=== PATIENT | female | born 2000 | race Caucasian/White ===

== ENCOUNTER 2023-09-27 13:06 | Day surgery (SDC) | payer OTHER, SELFPAY ==
[2023-09-27] VITALS (19 sets, daily range): BP systolic 98–140; BP diastolic 65–89; PULSE 77–107; RESP 12–20; TEMP 35.8–36.7; O2SAT 93–99; BMI 42.8
--- NOTE | 2023-09-27 14:32 | CRLHL7_ITS ---
For Patients: As a result of the Century Cures Act, medical imaging exams and procedure reports are released immediately into your electronic medical record. You may view this report before your referring provider. If you have questions, please contact your health care provider. INDICATION: LLQ PAIN TECHNIQUE: Ultrasound pelvis transabdominal and transvaginal for better assessment or to better visualize the endometrium. Real-time sonographic images with spectral and color Doppler imaging of the ovaries were obtained. COMPARISON: Pelvic ultrasound report from 08/13/2019 FINDINGS: Uterus: 8.7 x 3.7 x 4.4 cm. Normal echotexture of the myometrium. No masses. Endometrium: Transvaginal imaging was performed to better evaluate the endometrium. Endometrial thickness measures 11 mm. No sign of endometrial mass or fluid. The right ovary is not visualized. There is a large simple appearing cystic lesion seen superior to the uterus that measures approximately 15.8 x 11.1 x 16.4 centimeters. The left ovary is not discretely visualized. There is minimal blood flow seen on color Doppler adjacent to the cystic lesion. Cul-de-sac: No significant free fluid. IMPRESSION: 1. Large simple appearing cystic lesion seen superior to the uterus and slightly to the left of midline measuring 15.8 x 1.1 x 16.4 centimeters. 2. The left ovary is not discretely visualized; however, the large aforementioned cystic lesion may predispose the ovary to torsion. There is minimal blood flow seen on color Doppler adjacent to the cystic lesion without arterial waveforms on spectral Doppler. It is unclear if this is blood flow to an adjacent, compressed left ovary. Can consider consultation with gynecology for further management recommendations. 3. The right ovary is not visualized. Dictated by Juan F Byrd MD @ 09/27/2023 5:17:32 PM (Electronically Signed)
[2023-09-27] MEDS: KETOROLAC 15 MG/ML inj IVP (15:05)
[2023-09-27] MEDS: MORPHINE 4 MG/ML INJ IVP (15:05)
[2023-09-27] MEDS: ONDANSETRON 2 MG/ML inj 4 MG IVP (15:06)
[2023-09-27 15:08] LABS: Basophils Percent Auto 0.2 % (0.0-3.0); Eosinophils Percent Auto 0.2 % (0.0-7.0); Hematocrit 40.3 % (33.0-51.0); Hemoglobin* 13.1 gm/dL (12.0-16.0); Immature Granulocytes Pct Auto 1.1 %; Lymphocytes Percent Auto 10.8 % (20-44); Mean Corpuscular HGB Conc 33 gm/dL (32-36); Mean Corpuscular Hemoglobin 28 pg (26-34); Mean Corpuscular Volume 86 fL (80-100); Monocytes Percent Auto 2.8 % (0.0-11.0); Neutrophils Percent Auto 84.9 % (42.0-72.0); Platelet Count* 394 K/uL (140-440); RDW Coefficient of Variation % 13.8 % (11.5-15.5); Red Blood Count 4.67 m/uL (4.00-5.20); White Blood Count* 12.93 K/uL (4.50-11.00)
[2023-09-27 15:09] LABS: Slide Review Reflex No
[2023-09-27 15:27] LABS: Albumin* 4.8 g/dL (3.3-5.0); Chloride* 107 mmol/L (96-114)
[2023-09-27 15:28] LABS: Potassium* 3.9 mmol/L (3.6-5.1); Sodium* 139 mmol/L (135-149)
[2023-09-27 15:30] LABS: Anion Gap 13 mEq/L (7-15); Aspartate Amino Transferase* 21 U/L (12-35); Bilirubin Total* 0.6 mg/dL (0.1-1.5); Carbon Dioxide* 19 mmol/L (20-32); Creatinine* 0.6 mg/dL (0.5-1.5); Estimated Glomerular Filt Rate 129 ml/min
[2023-09-27 15:31] LABS: Alanine Aminotransferase* 19 U/L (4-35); Alkaline Phosphatase* 145 U/L (40-150); Blood Urea Nitrogen* 9 mg/dL (5-24); Calcium* 9.5 mg/dL (8.4-10.6); Glucose* 125 mg/dL (60-115); Lipase* 70 U/L (23-300); Total Protein* 8.3 g/dL (6.0-8.3)
[2023-09-27 15:34] LABS: PCR FLU A Negative PCR FLU A (Negative); PCR FLU B Negative PCR FLU B (Negative); PCR RSV Negative PCR RSV (Negative)
--- NOTE | 2023-09-27 15:37 | ED.GENADULT ---
HPI - General Adult General Date Seen: 09/27/23 Chief complaint: Nausea/Vomiting Stated complaint: Vomiting, stomach pain Time Seen by Provider: 09/27/23 14:22 Source: patient Mode of arrival: ambulatory Limitations: no limitations History of Present Illness HPI narrative: Patient is a 23-year-old female with no pertinent medical problems presenting to the emergency department for left lower quadrant/left pelvic pain. Pain started suddenly at 10:30 and has been gradually getting worse. She has says the pain is severe in nature and describes as an eye of 10 sharp pain. Denies ever having symptoms like this. No previous abdominal surgeries. Denies dysuria, vaginal bleeding, vaginal discharge, fevers, chills, chest pain, shortness of breath. She is very nauseated and has vomited several times due to the pain. She tried taking Tylenol for pain without any improvement in her symptoms. It is not aware of any sick contacts. Related Data Home Medications Medication Instructions Recorded Confirmed fluoxetine 40 mg capsule 40 mg PO QAM 09/27/23 09/27/23 thyroid (pork) 60 mg tablet (EDGER LINER 60 mg PO DAILY 09/27/23 09/27/23 Thyroid) Allergies Allergy/AdvReac Type Severity Reaction Status Date / Time No Known Drug Allergies Allergy Verified 09/27/23 13:19 Review of Systems Status of ROS: Reports: 10 or more systems reviewed and unremarkable except as noted in History and below [facility] Social History Smoking Status: Never smoker Do you use any of these nicotine containing products: None How often do you have a drink containing alcohol: never How often do you have six or more drinks on one occasion: Never AUDIT-C Alcohol total score: 0 Non-prescribed substance use: denies use service: No Exam Narrative: Exam Narrative: Const: Well-nourished, Well-developed, in moderate distress Eyes: PERRL, no conjunctival injection, and symmetrical lids HENT: Atraumatic external nose and ears. Moist mucous membranes. Neck: Symmetric, trachea midline, No thyromegaly. CVS: RRR, No murmurs or gallops. Peripheral pulses 2+ and equal in all extremities RESP: Unlabored respiratory effort. Clear to auscultation bilaterally. GI: Left lower quadrant tenderness with tenderness in her left pelvic region too, Nondistended, No rebound or guarding. MSK:Extremities w/o deformity, Normal Active ROM Skin: Warm, Dry. No rashes or lesions. Neuro: Normal Muscle tone, No focal neurological deficits. Psych: Awake, Alert, & Oriented x3. Appropriate mood and affect. Const: Vital Signs, click to edit/add: Vital Signs - 24 hr 09/27/23 13:15 09/27/23 14:26 09/27/23 14:32 Temperature 96.4 F L Pulse Rate 80 Pulse Rate [Pulse Oximeter] 77 Respiratory Rate 18 Blood Pressure 124/77 Blood Pressure [Ri ght Upper Arm] 114/76 Pulse Oximetry 98 99 Oxygen Delivery Me thod Room Air 09/27/23 16:26 09/27/23 16:37 09/27/23 17:02 Temperature Pulse Rate Pulse Rate [Pulse Oximeter] Respiratory Rate Blood Pressure 98/66 115/66 111/70 Blood Pressure [Ri ght Upper Arm] Pulse Oximetry Oxygen Delivery Me thod 09/27/23 17:31 09/27/23 18:02 09/27/23 18:19 Temperature 98.0 F Pulse Rate 100 Pulse Rate [Pulse Oximeter] Respiratory Rate 20 Blood Pressure 111/73 111/69 Blood Pressure [Ri ght Upper Arm] Pulse Oximetry 97 Oxygen Delivery Me thod 09/27/23 18:32 09/27/23 19:01 Temperature Pulse Rate Pulse Rate [Pulse Oximeter] Respiratory Rate Blood Pressure 115/75 100/65 Blood Pressure [Ri ght Upper Arm] Pulse Oximetry Oxygen Delivery Me thod Course Vital Signs Vital signs: Initial Vital Signs Temperature 96.4 F L 09/27/23 13:15 Temperature Source Temporal Artery Scan 09/27/23 13:15 Pulse Rate 77 09/27/23 13:15 Pulse Rhythm Regular 09/27/23 13:15 Pulse Strength 3+ Normal 09/27/23 13:15 Respiratory Rate 18 09/27/23 13:15 Blood Pressure 114/76 09/27/23 13:15 Blood Pressure Mean 88 09/27/23 13:15 Blood Pressure Position Sitting 09/27/23 13:15 Pulse Oximetry 98 09/27/23 13:15 Oxygen Delivery Method Room Air 09/27/23 13:15 Vital Signs Temperature 96.4 F L 09/27/23 13:15 Pulse Rate 77 09/27/23 13:15 Respiratory Rate 18 09/27/23 13:15 Blood Pressure 114/76 09/27/23 13:15 Pulse Oximetry 98 09/27/23 13:15 Oxygen Delivery Method Room Air 09/27/23 13:15 Temperature 98.0 F 09/27/23 18:19 Pulse Rate 100 09/27/23 18:19 Respiratory Rate 20 09/27/23 18:19 Blood Pressure 100/65 09/27/23 19:01 Pulse Oximetry 97 09/27/23 18:19 Oxygen Delivery Method Room Air 09/27/23 13:15 Medications Administered Medications: Discontinued Medications Generic Name Dose Route Start Last Admin Trade Name Freq PRN Reason Stop Dose Admin Hydromorphone HCl 0.5 mg 09/27/23 16:18 09/27/23 16:20 Hydromorphone 0.5 Mg/0.5 Ml Inj IVP 09/27/23 16:19 0.5 mg ONCE ONE Administration Hydromorphone HCl 0.5 mg 09/27/23 17:41 09/27/23 17:57 Hydromorphone 0.5 Mg/0.5 Ml Inj IVP 09/27/23 17:42 0.5 mg ONCE ONE Administration Hydromorphone HCl 0.5 mg 09/27/23 19:01 09/27/23 19:13 Hydromorphone 0.5 Mg/0.5 Ml Inj IVP 09/27/23 19:02 0.5 mg ONCE ONE Administration Ketorolac Tromethamine 15 mg 09/27/23 15:03 09/27/23 15:05 Ketorolac 15 Mg/Ml Inj IVP 09/27/23 15:04 15 mg ONCE ONE Administration Morphine Sulfate 4 mg 09/27/23 14:32 09/27/23 15:05 Morphine 4 Mg/Ml Inj IVP 09/27/23 14:33 4 mg ONCE ONE Administration Ondansetron HCl 4 mg 09/27/23 14:32 09/27/23 15:06 Ondansetron 2 Mg/Ml Inj IVP 09/27/23 14:33 4 mg ONCE ONE Administration Medical Decision Making MDM Narrative Medical decision making narrative: Patient is a 23-year-old female presenting for left lower quadrant/pelvic pain. Concerned about the pain she appear to be, also then the pain came on, and location I am very concerned for torsion at this time. Patient given Toradol, morphine for pain and Zofran for nausea. CMP, lipase, cholecystitis flu/RSV, CBC all ordered. dairy manufacturing technologist tried to take care for ultrasound immediately but patient was in too much pain unable to tolerate the ultrasound. After patient was given pain medications she was able tolerate ultrasound. White blood cell count came back at 12.93. She is vomiting this could be a stress reaction. CMP shows no concerning findings. COVID says flu/RSV is negative. test is negative. dairy manufacturing technologist states the ultrasound appeared to show a very large ovarian cyst with concern for torsion. I immediately called OB. They came down to evaluate the patient. Is decided patient will go to surgery. Ultrasound read came back after this and said what we or a suspected. Patient has been can given Dilaudid for pain. She will go to OR from the ED Lab Data Labs: Lab Results 09/27/23 09/27/23 09/27/23 Range/Units 14:12 15:00 16:22 WBC 12.93 H (4.50-11.00) K/uL RBC 4.67 (4.00-5.20) m/uL Hgb 13.1 (12.0-16.0) gm/dL Hct 40.3 (33.0-51.0) % MCV 86 (80-100) fL MCH 28 (26-34) pg MCHC 33 (32-36) gm/dL RDW Coeff of Marce 13.8 (11.5-15.5) % Plt Count 394 (140-440) K/uL Neut % (Auto) 84.9 H (42.0-72.0) % Lymph % (Auto) 10.8 L (20-44) % Gosper % (Auto) 2.8 (0.0-11.0) % Eos % (Auto) 0.2 (0.0-7.0) % Baso % (Auto) 0.2 (0.0-3.0) % Neut # (Auto) 11.00 H (1.7-7.0) K/uL Lymph # (Auto) 1.40 (0.90-2.90) K/uL Gosper # (Auto) 0.40 (0.00-0.90) K/UL Eos # (Auto) 0.00 (0.00-0.50) K/uL Baso # (Auto) 0.00 (0.00-0.30) K/uL Abs Immat Gran (auto) 0.10 (0.00-0.30) K/uL Imm/Tot Granulo (auto) 1.1 % Sodium 139 (135-149) mmol/L Potassium 3.9 (3.6-5.1) mmol/L Chloride 107 (96-114) mmol/L Carbon Dioxide 19 L (20-32) mmol/L Anion Gap 13 (7-15) mEq/L BUN 9 (5-24) mg/dL Creatinine 0.6 (0.5-1.5) mg/dL Estimated Creat Clear 152.40 Estimated GFR 129 ml/min Glucose 125 H (60-115) mg/dL Calcium 9.5 (8.4-10.6) mg/dL Total Bilirubin 0.6 (0.1-1.5) mg/dL AST 21 (12-35) U/L ALT 19 (4-35) U/L Alkaline Phosphatase 145 (40-150) U/L Total Protein 8.3 (6.0-8.3) g/dL Albumin 4.8 (3.3-5.0) g/dL Lipase 70 (23-300) U/L HCG, Qual (Negative) SARS-CoV-2 (PCR) Negative SARS-CoV-2 (Negative) Influenza Type A (PCR) Negative PCR FLU A (Negative) Influenza Type B (PCR) Negative PCR FLU B (Negative) RSV (PCR) Negative PCR RSV (Negative) Lab Acknowledgement Test Added 09/27/23 Range/Units 16:30 WBC (4.50-11.00) K/uL RBC (4.00-5.20) m/uL Hgb (12.0-16.0) gm/dL Hct (33.0-51.0) % MCV (80-100) fL MCH (26-34) pg MCHC (32-36) gm/dL RDW Coeff of Marce (11.5-15.5) % Plt Count (140-440) K/uL Neut % (Auto) (42.0-72.0) % Lymph % (Auto) (20-44) % Gosper % (Auto) (0.0-11.0) % Eos % (Auto) (0.0-7.0) % Baso % (Auto) (0.0-3.0) % Neut # (Auto) (1.7-7.0) K/uL Lymph # (Auto) (0.90-2.90) K/uL Gosper # (Auto) (0.00-0.90) K/UL Eos # (Auto) (0.00-0.50) K/uL Baso # (Auto) (0.00-0.30) K/uL Abs Immat Gran (auto) (0.00-0.30) K/uL Imm/Tot Granulo (auto) % Sodium (135-149) mmol/L Potassium (3.6-5.1) mmol/L Chloride (96-114) mmol/L Carbon Dioxide (20-32) mmol/L Anion Gap (7-15) mEq/L BUN (5-24) mg/dL Creatinine (0.5-1.5) mg/dL Estimated Creat Clear Estimated GFR ml/min Glucose (60-115) mg/dL Calcium (8.4-10.6) mg/dL Total Bilirubin (0.1-1.5) mg/dL AST (12-35) U/L ALT (4-35) U/L Alkaline Phosphatase (40-150) U/L Total Protein (6.0-8.3) g/dL Albumin (3.3-5.0) g/dL Lipase (23-300) U/L HCG, Qual Negative (Negative) SARS-CoV-2 (PCR) (Negative) Influenza Type A (PCR) (Negative) Influenza Type B (PCR) (Negative) RSV (PCR) (Negative) Lab Acknowledgement Imaging Data Pelvic ultrasound: Radiologist's impression: 1. Large simple appearing cystic lesion seen superior to the uterus and slightly to the left of midline measuring 15.8 x 1.1 x 16.4 centimeters. 2. The left ovary is not discretely visualized; however, the large aforementioned cystic lesion may predispose the ovary to torsion. There is minimal blood flow seen on color Doppler adjacent to the cystic lesion without arterial waveforms on spectral Doppler. It is unclear if this is blood flow to an adjacent, compressed left ovary. Can consider consultation with gynecology for further management recommendations. 3. The right ovary is not visualized. Dictated by Juan F Byrd MD @ 09/27/2023 5:17:32 PM Discharge Plan Discharge Clinical Impression: Ovarian cyst Qualifiers: Laterality: left Qualified Code(s): N83.202 - Unspecified ovarian cyst, left side Patient Disposition: XFER to OR Condition: Stable Follow Up/Referrals: Dari Phan, AUDIO VISUAL AIDE, BOTTLE LINE WORKER [Primary Care Provider] -
[2023-09-27 15:44] LABS: SARS PCR* Negative SARS-CoV-2 (Negative)
[2023-09-27] MEDS: HYDROmorphone 0.5 mg/0.5 ml inj IVP ×3 (16:20→19:13)
[2023-09-27 17:05] LABS: HCG Qualitative Serum* Negative (Negative)
--- NOTE | 2023-09-27 18:58 | P.OBPRC_ITS ---
Procedure Date of procedure: 09/27/23 Pre-op diagnosis: 1. 35 0/7 weeks' gestation 2. Vaginal bleeding; suspected placental abruption Post-op diagnosis: same Procedure Done: Global Will [facility] bill your pro fee for this procedure?: Yes Blood Loss Measurement Type: QBL (1028 cc) Bakri Used: No IV fluids (mL): 1,900 Surgeon: Emilie Morales MD Anesthesia Type: TAP Block Findings: 1. Male infant, cephalic OA presentation, Apgars of 7 and 8, weight pending at time of this dictation 2. Normal appearance of uterus, bilateral tubes and ovaries Procedure Name: Primary low-transverse section Procedure Description: PROCEDURE IN DETAIL: Patient was taken to the operating room with IV running. She received cefazolin in preoperative prophylaxis. Spinal anesthesia was administered. Martinez catheter was inserted. She was prepped and draped in the usual sterile fashion. Anesthesia was tested and found to be adequate. A low-transverse skin incision was made with a scalpel and carried through to the underlying layer of fascia with the scalpel. The subcutaneous fat was dissected off the underlying fascia with Bovie. The fascia was nicked in the midline with a scalpel, and this incision was extended laterally with scissors. The rectus muscles were in the midline. Peritoneum was identified and entered bluntly. Bovie was used to widen this opening laterally. Koko O retractor was inserted and tightened down, providing excellent visualization of the lower uterine segment. The bladder reflection was found to be well below the planned site for hysterotomy. Low-transverse uterine incision was made with a scalpel. Incision was widened bluntly. The 's head was grasped through the hysterotomy and delivered with the help of fundal pressure. The remainder of the body delivered without incident. Cord was clamped and cut after 30 seconds. was handed off to attending nurses. The placenta was delivered with gentle traction on the cord. The uterus was cleaned of all clots and debris with the dry lap pad. The uterus was exteriorized. The hysterotomy was reapproximated with 0 Vicryl in a running, locked fashion. Second layer of the same suture was used in imbricating fashion to obtain hemostasis. One additional [id number] suture were required near the left aspect of the hysterotomy to obtain hemostasis. The adnexa were examined and noted to be normal in appearance. The cul-de-sac and gutters were cleansed with dampened laparotomy sponge, removing any further clots and debris. The uterus was returned to the abdomen. There was some oozing along the parietal peritoneum adjacent to the bladder, which was addressed with Bovie. The Koko O retractor was removed. The hysterotomy was reexamined and found to be hemostatic. The peritoneum was reapproximated with 2 0 Vicryl in a running fashion. The rectus muscles were examined and found to be hemostatic. The fascia was reapproximated with 0 Vicryl in a running fashion. Subcutaneous fat was irrigated and Bovie used on oozing vessels. The subcutaneous fat was reapproximated with 2 0 plain gut suture in an interrupted fashion. [] The skin was closed with a subcuticular stitch of 4-0 Monocryl. Surgical glue was applied above this. Patient tolerated procedure well was taken to recovery area in stable condition. Complications: Intrapartum hemorrhage of 1028 mL, which ceased after hysterotomy closure. Pathology: specimen obtained, sent to pathology (Placental) Surgery Debrief Performed: Yes Condition: stable Disposition: floor
[2023-09-27] MEDS: LACTATED RINGERS 1000 ML 1,000 ML 125 ML IV (19:00)
[2023-09-27] MEDS: LACTATED RINGERS 1000 ML 1,000 ML 100 ML IV (19:45)
--- NOTE | 2023-09-27 19:48 | PM.GYNCN1 ---
LAPEL STITCHER - CN: HPI Data of Consult Date Seen: 09/27/23 Patient: Other Consult date: 09/27/23 Primary Care Provider: Dari Phan APRN, LIZZY Consult Narrative Reason for consult: abdominal pain Narrative: Anamika Goldberg is a 23 year old female who is seen by kind request of Dr. Eduardo Treviño for evaluation of abdominal pain in the setting of large ovarian cyst and suspected torsion. Anamika reports having experienced intermittent pelvic pain over the last month or so. Upon awakening this morning, she experienced severe and persistent pelvic pain. She has been vomiting since 07/25, related to the pain. She has no history of ovarian cysts. She has been seen in the ER previously for abdominal pain, and was found to have constipation. Obstetric and gynecologic history: G0 She reports somewhat regular menses, occurring roughly every month, with length of flow around 6 days. They are occasionally heavy and painful. She has no history of sexually transmitted infection She has never had a Pap smear Past medical history: Hypothyroidism, treated with thyroid replacement Generalized anxiety disorder, treated with fluoxetine Past surgical history: None Family history: Maternal aunt with a rare type of cervical cancer Social history: She lives in [place] with her parents. She is accompanied by her mother. 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 She does not smoke or use recreational drugs. She infrequently drinks alcohol. cc:: CC: [facility] Social History Smoking Status: Never smoker Do you use any of these nicotine containing products: None How often do you have a drink containing alcohol: never How often do you have six or more drinks on one occasion: Never AUDIT-C Alcohol total score: 0 Non-prescribed substance use: denies use service: No Meds Home Medications and Allergies Home Medications Medication Instructions Recorded Confirmed Type fluoxetine 40 mg capsule 40 mg PO QAM 09/27/23 09/27/23 History thyroid (pork) 60 mg tablet (ROLLING MACHINE TENDER 60 mg PO DAILY 09/27/23 09/27/23 History Thyroid) Allergies Allergy/AdvReac Type Severity Reaction Status Date / Time No Known Drug Allergies Allergy Verified 09/27/23 13:19 LAPEL STITCHER - Exam Physical Exam: Vital signs: Temp Pulse Resp BP Pulse Ox O2 Del Method 98.0 F 100 20 100/65 97 Room Air 09/27/23 18:19 09/27/23 18:19 09/27/23 18:19 09/27/23 19:01 09/27/23 18:19 09/27/23 13:15 Narrative: Physical exam: General: Appears uncomfortable and slightly sleepy Psych: Alert and oriented x3, full affect HEENT: Normocephalic, atraumatic Heart: Regular rate and rhythm, no murmur rub or gallop Lungs: Clear to auscultation bilaterally Abdomen: Soft, vague suggestion of mobile mass in lower abdomen, mild tenderness at this time, though I examine her after receiving narcotics, no rebound, or guarding, palpable mass, no hepatosplenomegaly, no hernias Lower extremities: No edema or erythema LAPEL STITCHER - Results Labs Labs: Short CBC 09/27/23 Range/Units 15:00 WBC 12.93 H (4.50-11.00) K/uL Hgb 13.1 (12.0-16.0) gm/dL Hct 40.3 (33.0-51.0) % Plt Count 394 (140-440) K/uL BMP 09/27/23 15:00 Sodium 139 Potassium 3.9 Chloride 107 Carbon Dioxide 19 L BUN 9 Creatinine 0.6 Glucose 125 H Calcium 9.5 Liver Function 09/27/23 Range/Units 15:00 Total Bilirubin 0.6 (0.1-1.5) mg/dL AST 21 (12-35) U/L ALT 19 (4-35) U/L Alkaline Phosphatase 145 (40-150) U/L Albumin 4.8 (3.3-5.0) g/dL Imaging US - abdomen: Attestation: I have reviewed the pertinent imaging results. My impression: Large simple cyst adjacent to the uterus, measuring greater than 16 cm in images provided Radiologist's impression: IMPRESSION: 1. Large simple appearing cystic lesion seen superior to the uterus and slightly to the left of midline measuring 15.8 x 1.1 x 16.4 centimeters. 2. The left ovary is not discretely visualized; however, the large aforementioned cystic lesion may predispose the ovary to torsion. There is minimal blood flow seen on color Doppler adjacent to the cystic lesion without arterial waveforms on spectral Doppler. It is unclear if this is blood flow to an adjacent, compressed left ovary. Can consider consultation with gynecology for further management recommendations. 3. The right ovary is not visualized. Assessment and Plan Assessment and plan (1) Ovarian cyst: Status: Acute (2) Ovarian torsion: Status: Acute Assessment and Plan: At least intermittent torsion is suspected on imaging, and her history of pain and vomiting is consistent with this diagnosis. Given this, the priority is for removal of the ovarian cyst. Given the size of the cyst, I suspect that I may need to remove the entire ovary, as there would be little healthy cortex left. I do not suspect malignancy given the appearance of the cyst and the patient's age. I will attempt laparoscopic removal of sister oophorectomy. We discussed possibility of having to change to laparotomy. We discussed the significance of cyst rupture. We also discussed impact on fertility. Her remaining ovary should be enough to maintain ovulation and reproductive capacity. We discussed risks of surgery, including bleeding/hemorrhage, risk of transfusion, infection, damage to internal organs, risks of anesthesia, risk of thromboembolism. We discussed likely postoperative restrictions and precautions in the setting of both successful laparoscopy and in the setting of conversion to laparotomy. Consent form was reviewed with and signed by patient. She will need no preoperative antibiotics.
[2023-09-27] MEDS: BUPIVACAINE 0.25% 30 ML INJECTION (21:17)
--- NOTE | 2023-09-27 21:24 | SUR.OPER ---
PATIENT QUESTIONS ANSWERED SATISFACTORILY PREOPERATIVELY. PATIENT BROUGHT TO OR #4 PER WHEELCHAIR. Patient positioned supine on OR #4 bed for the intubation. Pt. then moved into the lithotomy position for the procedure. Perioperative team/Areli padded and tucked the arms at pt. side w/ sleds in a neutral position. Final approval of positioning by surgeon.
[2023-09-27] MEDS: SILVER NITRATE APPLICATOR 1 EACH STICK..EA. TOPICAL (23:02)
--- NOTE | 2023-09-27 23:20 | P.ANES_ITS ---
Anesthesia Charges Start Date/Time Anesthesia Start Date: 09/27/23 Anesthesia Start Time: 20:31 Stop Date/Time Anesthesia Stop Date: 09/27/23 Anesthesia Stop Time: 23:19 Summary Emergency: WAGE ADJUSTER
--- NOTE | 2023-09-27 23:29 | W.PM.GYNPROC ---
Procedure Note Date of procedure: 09/27/23 Pre-op diagnosis: Left ovarian cyst with suspected torsion Post-op diagnosis: other (1. Left tubal cyst with torsion involving left tube and ovary; 2. Left ovarian cyst; 3. Endometriosis) Procedure: Laparoscopy with left salpingectomy, left ovarian cystectomy, fulguration and excision of endometriosis Anesthesia: GETA Complications: None Surgeon: Emilie Morales MD Maintenance Planning Clerk: Gina Richardson Estimated blood loss (mL): 25 IV fluids (mL): 1,000 Urine Output (mL): 75 Pathology: specimen obtained, sent to pathology (1. Proximal left Fallopian tube; 2. Left ovarian cyst wall; 3. Biopsy of right uterosacral ligament; 4. Left tubal cyst) Condition: stable Disposition: floor Findings: 1. Upon pelvic exam under anesthesia, the cervix and vagina were normal in appearance. Bimanual exam was limited by patient habitus. 2. Upon laparoscopy, survey of the upper abdomen revealed a normal appearance to the inferior edge of the liver, gallbladder and stomach. Bowels were grossly normal appearance. Appendix was not visualized. Survey of the pelvis revealed a very large cystic mass involving the distal left Fallopian tube. The left fallopian tube was twisted twice around the left utero-ovarian ligament, with the cystic mass distal to the site of torsion. The left ovary exhibited a small blood-filled cyst along its medial most edge, proximally 1.5 cm in greatest dimension. The uterus was normal appearance. The bladder reflection was normal in appearance. The posterior cul-de-sac and bilateral uterosacral ligaments exhibited scattered powder burn lesions. There was a small inverted pocket of peritoneal covering over the proximal right uterosacral ligament. The right tube and ovary were entirely normal appearance. Bilateral ovarian fossa were normal in appearance. Procedure Description: Patient was taken to the operating room with IV running. She was positioned in dorsal lithotomy position with her legs fully supported in Yellofin stirrups. General anesthesia was administered. She was prepped and draped in the usual sterile fashion. Bimanual exam was performed for the above-noted findings. Speculum was inserted. A single-toothed uterine manipulator was inserted through the cervix into the lower uterine segment, and affixed to the anterior cervical lip. Speculum was removed. Martinez catheter was placed. Patient's legs were placed in neutral position. Attention was turned to patient's abdomen. The infraumbilical area was infiltrated with small amount of Marcaine. An infraumbilical incision was made with a scalpel and carried through to the underlying layer of fascia with a hemostat. The fascia was grasped with Ubaldo clamps and the fascia was incised with Young scissors. The peritoneum beneath this was entered bluntly. A 12 mm Wray trocar was passed through the anterior abdominal wall into the peritoneal cavity. The balloon tip was inflated. Insufflator was attached and pneumoperitoneum was achieved. The tip of the port did need to be advanced a small bit to be in the proper location. Survey of abdomen and pelvis revealed the above-noted findings. Two additional port sites were created. The first was in the patient's left lower quadrant, just superior medial to the left ASIS. The second was a hand's breath superior to and slightly medial to the first. Each was infiltrated with small amount of Marcaine prior to incision. A 5 mm incision was made at each site, making sure the large vessels were out of harm's way. A 5 mm Fios Kii port was inserted at each site, under direct visualization and without complication. The balloon on each of the two ports was inflated, holding each in place. The large cyst involving the distal left fallopian tube was lifted out of the pelvis and held away from the adjacent normal appearing left ovary. Using the Thunderbeat device, this cyst was divided from the neighboring ovary. The tissue between these 2 structures was quite dense and thick. Once this cyst was divided and freed from the ovary, it was placed intact in the upper abdomen. The remaining fallopian tube and ovary were then on twisted. The remaining fallopian tube was dissected out of the mesosalpinx with the Thunderbeat device, moving laterally to medially, and the left tube was amputated at the cornua. It was sent to pathology for further analysis. Hemostasis was noted. The left ovary was elevated away from the pelvic sidewall. It appeared healthy and well vascularized after the torsion was resolved. The small, blood-filled cyst described above was entered with the Thunderbeat device, and was found to be full of clotted dark blood. Portions of the overlying cortex and cyst wall were sent to pathology for further analysis. Hemostasis was noted. Using the uterine manipulator to antevert the uterus, the cul-de-sac and uterosacral ligaments were better visualized. The pouch arising from the proximal right uterosacral ligament was grasped with Madison forceps laparoscopically and the peritoneal covering was excised with monopolar cautery and sent to pathology for further analysis. The remaining powder burn lesions in the cul-de-sac and involving the uterosacral ligaments were fairly superficial. These were cauterized with monopolar cautery. Hemostasis was noted. The Jesus port was removed from the umbilical port site. The fascial incision was lengthened, initially long enough to accommodate the extra large Endo-Catch bag; I believe the diameter was 15 mm. The patient was placed in a more neutral position, and the cyst was moved towards the pelvis. The trocar of the large Endo-Catch bag was inserted directly through the umbilical incision. The bag was deployed under direct visualization. The bag was then moved cephalic to caudad around the cystic tubal mass, which entirely filled the bag. The bag was cinched down and the edge was brought to the abdominal wall. To accomplish this, the fascial incision was length plan slightly to around 3.5 cm. However, the mass was too big to allow the bag's edges to be pulled entirely through the anterior abdominal wall. The edges of the bag were grasped the several hemostats and held at the skin edge, as high as they would go. From within the bag, the cystic mass was punctured and suction eligibility counselor was used to suction the clear fluid that began to leave the mass. In total, the mass contained about 1 L of fluid. Once the cyst had collapsed enough to allow delivery of the cyst through the anterior abdominal wall, this was removed in the bag and sent to pathology for further analysis. With the umbilical port held closed digitally, pneumoperitoneum was again achieved and survey of the pelvis revealed hemostasis. The balloons on the 2 remaining ports were deflated, and these ports were removed. The fascia of the umbilical port site was grasped with several Ubaldo clamps and was closed with a running stitch of 0 Vicryl. The skin of this site and the 2 other 5 mm port sites was closed with a subcuticular stitch of 4-0 Monocryl. Surgical glue was applied above this. Patient's legs were placed back in lithotomy position. The single-toothed uterine manipulator was removed. There was bleeding noted from the puncture site on the anterior lip the cervix, which was addressed with silver nitrate stick. The Martinez catheter was removed. Patient tolerated procedure well was taken to recovery area in stable condition.
[2023-09-28 00:12] VITALS: BP 127/73; PULSE 82; RESP 16; TEMP 36.7; O2SAT 91
[2023-09-28 00:27] VITALS: BP 108/65; PULSE 83; RESP 16; TEMP 36.8; O2SAT 94
[2023-09-28 00:42] VITALS: BP 114/75; PULSE 95; RESP 16; O2SAT 92
[2023-09-28 00:57] VITALS: BP 113/71; PULSE 98; RESP 16; TEMP 36.4; O2SAT 96
[2023-09-28 01:27] VITALS: BP 108/74; PULSE 97; RESP 16; TEMP 36.6; O2SAT 94
[2023-09-28 01:57] VITALS: BP 107/71; PULSE 94; RESP 18; TEMP 36.6; O2SAT 96
[2023-09-28] MEDS: OXYCODONE 5 MG TABLET PO (02:39)
--- NOTE | 2023-09-28 02:43 | PC.NURSE ---
Patient requesting to discharge home. Has ambulated, voided, ate and drank without nausea, is vitally stable and is reporting pain 2 out of 10. MD notified; telephone order given that patient is okay to discharge.
== END 2023-09-28 02:55 | disposition home or self-care (01) ==
LOC: ED 19:36 → OR 20:53 → OB 09-28 02:13 → OR 12-01 11:08
PROVIDERS: Obstetrics & Gynecology; Emergency Provider Student in an Organized Health Care Education/Training Program; PCP Nurse Practitioner Family; Visit Provider Surgery
PROC: (CPT 49320; principal; 2023-09-27 21:45)
DX: N83.292 Other ovarian cyst, left side (principal); N83.53 Torsion of ovary, ovarian pedicle and fallopian tube; N80.3B Deep endometriosis of the uterosacral ligament(s); D28.2 Benign neoplasm of uterine tubes and ligaments; N83.8 Other noninflammatory disorders of ovary, fallopian tube and broad ligament
CPT/HCPCS: 58661; 58662; 00840; 36415; 76830; 76856; 80053; 81001; 81025; 83690; 84703; 85018; 85025; 87631; 88305; 88307; 93976; 96374; 96375; 96376; 99140; 99283; 99284; 99285; G0463; A9270; J0330; J0665; J1100; J1170; J1630; J1885; J2270; J2405; J2704; J3010; J3490; J7120